=== PATIENT | female | born 1980 | race Two or more races ===

== ENCOUNTER 2025-05-25 11:30 | Day surgery (SDC) | payer MEDICAID, SELFPAY ==
[2025-05-24 12:44] LABS: HCG Qualitative,Urine Negative
[2025-05-24 13:28] VITALS: BMI 31.2
[2025-05-25] VITALS (8 sets, daily range): BP systolic 143–172; BP diastolic 76–111; PULSE 61–78; RESP 12–19; TEMP 36.2–36.4; O2SAT 97–100; BMI 30.2
[2025-05-25] MEDS: fentaNYL CIT INJ 50 mCg/ML AMP 2ML (ASD USE ONLY) IVP (13:56)
[2025-05-25] MEDS: RINGERS LACTATED 500 ML 500 ML 20 ML IV (13:56)
[2025-05-25] MEDS: MIDAZOLAM INJ 1 MG/ML VIAL 2 ML (ASD USE ONLY) 2 MG IVP (13:56)
[2025-05-25] MEDS: BENZOCAINE 20% (Hurricaine) SPRAY 1 DOSE TOP (13:57)
== END 2025-05-25 14:30 | disposition home or self-care (01) ==
PROVIDERS: Referring Provider Internal Medicine Gastroenterology; Visit Provider Internal Medicine Gastroenterology
PROC: (CPT 43239; principal; 2025-05-25 12:45)
DX: K29.50 Unspecified chronic gastritis without bleeding (principal); K21.00 Gastro-esophageal reflux disease with esophagitis, without bleeding; K25.9 Gastric ulcer, unspecified as acute or chronic, without hemorrhage or perforation; I10 Essential (primary) hypertension
CPT/HCPCS: 43239; 81025; A4649; J1200; J2250; J3010; J7120; A9270

== ENCOUNTER 2025-05-27 08:10 | Day surgery (SDC) | payer MEDICAID, SELFPAY ==
[2025-05-27] VITALS (13 sets, daily range): BP systolic 102–148; BP diastolic 70–104; PULSE 55–74; RESP 14–20; TEMP 36.2–36.4; O2SAT 96–100; BMI 27.8
[2025-05-27] MEDS: RINGERS LACTATED 500 ML 500 ML 20 ML IV (09:44)
[2025-05-27] MEDS: MIDAZOLAM INJ 1 MG/ML VIAL 2 ML (ASD USE ONLY) 2 MG IVP (09:48)
[2025-05-27] MEDS: fentaNYL CIT INJ 50 mCg/ML AMP 2ML (ASD USE ONLY) IVP (09:48)
== END 2025-05-27 11:00 | disposition home or self-care (01) ==
PROVIDERS: Referring Provider Internal Medicine Gastroenterology; Visit Provider Internal Medicine Gastroenterology
PROC: 0DBE8ZX Excision of Large Intestine, Via Natural or Artificial Opening Endoscopic, Diagnostic (ICD-10-PCS; CPT 45380; principal; 2025-05-27 10:30)
DX: D12.2 Benign neoplasm of ascending colon (principal); K52.9 Noninfective gastroenteritis and colitis, unspecified; I10 Essential (primary) hypertension; K64.8 Other hemorrhoids
CPT/HCPCS: 45382; 45385; 45380; 81025; A4649; J1200; J2250; J3010; J7120